=== PATIENT | male | born 1970 | race Caucasian/White ===

== ENCOUNTER 2020-06-21 12:10 | Emergency (ER) | payer OTHER, SELFPAY ==
[2020-06-21 12:20] VITALS: BP 119/83; PULSE 72; RESP 20; TEMP 37; O2SAT 96; BMI 26.6
--- NOTE | 2020-06-21 12:45 | HMH.EDUTC ---
[facility] [place] Clinical Impression: Encounter for laboratory testing for COVID-19 virus Sinusitis Qualifiers: Sinusitis location: unspecified location Chronicity: unspecified Qualified Code(s): J32.9 - Chronic sinusitis, unspecified Disposition: Home, Self-Care Condition on Discharge: Good Instructions: Preventing the Spread of Coronavirus Discharge Instructions, Sore Throat, DI for Sinusitis Additional Instructions: *Monitor Temp, Over the counter Motrin or Tylenol as directed/as needed Tylenol every 4 hours and Motrin every 6 hours (as long as your family doctor has told you that you can take it) for fever or pain. and straight to ER if unable to lower temp less than 101.0 after medication given *Warm salt water gargles may help to soothe the throat *Throat Lozenges *Warm fluids like tea with honey may help to soothe the throat *Sleep elevated *Humidifier/Vaporizer *Flonase 2 sprays in each nostril daily but be aware that it may take 2-3 days before you notice improvement Your throat swab was sent for culture. Those results are typically sent to your primary care. Be sure to follow up in 2-3 days with your family doctor/primary care physician if no improvement so they can review those result and treat if necessary. If you don?t have a primary care doctor, I recommend you get one but in the mean time, you will have to return to a walk in clinic Follow up IMMEDIATELY for new or worsening symptoms or no Noticeable improvement over the next 48-72 hours. 911 for difficulty breathing or swallowing You was tested for today for COVID19 your test result should be back in the next 24-48 hours, you may call to the [facility] tomorrow to see if your test results are back and the result [phone] [facility] hours are 9am-9pm You was given a handout with instructions for Self Quarantine and Self isolation for while you wait on test results and what to do if they are positive If you are positive the Health Dept will be contacting you also Prescriptions: Fluticasone Propionate [Flonase 50mcg nasal spray 16gm] 1 spr NS DAILY #1 bottle Prescription Printed Benzonatate [Tessalon Perle 100mg Cap*] 100 mg PO TID PRN #30 cap PRN Reason: Cough Prescription Printed Azithromycin [Z-Julio Cesar 250mg Tab] 250 mg PO DIRECTED #6 tab Prescription Printed Referrals: PCP,No [Primary Care Provider] - As needed Forms: Work/School Release Time of Disposition: 12:59 Medical Decision Making - Madi Inquiry Pt receiving controlled substance: No Madi was queried for this patient: No Vital Signs: 06/21/20 12:20 Temperature 98.6 F Temperature Source Oral Pulse Rate [Right Brachial] 72 Respiratory Rate 20 Blood Pressure [Right Arm] 119/83 Blood Pressure Mean [Right Arm] 95 Blood Pressure Source [Right Arm] Automatic Cuff Blood Pressure Position [Right Arm] Sitting 02 Sat by Pulse Oximetry 96 Oxygen Delivery Method Room Air Orders (Tests/Meds): ORDERS Category Date Time Status Covid-19 Nasal PCR Sendout [facility] 06/21/20 12:12 Received [facility] [place] H[place] - General Stated complaint: covid exposure,body aches,chills Time Seen by Provider: 06/21/20 12:45 Mode of Arrival: Ambulatory Source of Information: Patient Limitations: No Limitations Description of Symptoms (Recalled from Triage Doc. by RN): PATIENT C/O BODY ACHES, COUGH, SORE THROAT, CHILLS, LOW-GRADE FEVER, AND DECREASED TASTE/SMELL. REPORTS THAT HIS CHILDREN TEST POSITIVE FOR COVID ON 06/15 HEENT Symptoms (Recalled from RN notes): Yes Resp Symptoms (Recalled from RN notes): Yes Skin Symptoms (Recalled from RN notes): No MS Symptoms (Recalled from RN notes): Yes Functional Status (Recalled from RN notes): WNL - History of Present Illness Provider Complaint: Patient states that his two kids tested positive for COVID around the and he has been on quarantine State that he has since started having sinus pain and pressure, sore throat, drainage and body aches along with chills a
[2020-06-21 12:58] LABS: UTC Strep Screen (Rapid) Negative (Negative)
[2020-06-21 12:59] LABS: UTC Influenza A Antigen Negative (Negative)
[2020-06-21 13:00] LABS: UTC Influenza B Antigen Negative (Negative)
[2020-06-21 13:01] VITALS: BP 119/83; PULSE 72; RESP 20; TEMP 37; O2SAT 96
[2020-06-22 16:05] LABS: Covid-19 Nasal PCR Sendout Lex Not Detected
== END 2020-06-21 13:05 | disposition home or self-care (01) ==
PROVIDERS: Emergency Provider Nurse Practitioner; PCP Family Medicine
DX: Z20.828 Contact with and (suspected) exposure to other viral communicable diseases (principal); J32.9 Chronic sinusitis, unspecified
CPT/HCPCS: 87804; 87880; 99202; U0004